=== PATIENT | male | born 1975 | race Caucasian/White ===

== ENCOUNTER 2022-08-19 21:26 | Emergency (ER) | payer SELFPAY ==
[~2022-08-19] VITALS: Ht 175.3 cm; Wt 82.9 kg
[2022-08-19 21:42] VITALS: BP 132/65
[2022-08-20] MEDS ORDERED: NALO4SPR BOTHNSTRLS (02:45)
== END 2022-08-20 03:06 | disposition home or self-care (01) ==
LOC: ER 21:59
DX: L29.9 Pruritus, unspecified (principal); F15.10 Other stimulant abuse, uncomplicated; I10 Essential (primary) hypertension
CPT/HCPCS: 99281